=== PATIENT | female | born 1980 | race Caucasian/White ===

== ENCOUNTER 2016-11-08 09:50 | Day surgery (SDC) | payer OTHER ==
[~2016-11-08] VITALS: Ht 165.1 cm; Wt 97.9 kg
[~2016-11-08 09:50] MED LIST: AMOXICILLIN500 M1 PO; AUGMENTIN XR1000 MG PO; AUGMENTIN500 MG PO; AZITHROMYCIN500 M1 PO; COUGH & COLD S237 ML PO; LO-DOSE ASPIRIN81 M1 PO; MYCOSTATIN 100,60 ML PO; ONE DAILY WOME1 EACH PO; PHENAZOPYRIDIN100 MG PO; RABAVERT IM; TESSALON PERLE100 MG PO; VANCOMYCIN HCL125 MG PO; VITAMIN D31000 UNI1 PO; ZOVIRAX5 GM TP; [UNRECOGNIZED DRUG - OTHER] IM; [UNRECOGNIZED DRUG - OTHER] PO
[2016-11-08 10:16] VITALS: BP 134/81
[2016-11-08] MEDS ORDERED: IBUPROFEN800 MG PO (12:34)
[2016-11-08 14:20] VITALS: BP 134/72
[2016-11-08 15:33] VITALS: BP 130/85
== END 2016-11-08 15:35 | disposition home or self-care (01) ==
LOC: SDC 09:50
DX: N92.0 Excessive and frequent menstruation with regular cycle (principal); N84.0 Polyp of corpus uteri; N94.6 Dysmenorrhea, unspecified; N85.4 Malposition of uterus; R39.15 Urgency of urination; E66.01 Morbid (severe) obesity due to excess calories; Z68.41 Body mass index [BMI] 40.0-44.9, adult; Z80.49 Family history of malignant neoplasm of other genital organs; Z82.0 Family history of epilepsy and other diseases of the nervous system; Z80.0 Family history of malignant neoplasm of digestive organs; Z83.3 Family history of diabetes mellitus; Z80.3 Family history of malignant neoplasm of breast; Z80.42 Family history of malignant neoplasm of prostate; Z82.61 Family history of arthritis; Z82.5 Family history of asthma and other chronic lower respiratory diseases
CPT/HCPCS: 88305; J1100; J1170; J1885; J2250; J2405; J3010

== ENCOUNTER 2017-12-04 05:32 | Day surgery (SDC) | payer OTHER ==
[~2017-12-04] VITALS: Ht 165.1 cm; Wt 111.1 kg
[~2017-12-04 05:32] MED LIST changes: +BENTYL10 MG PO; +CLEOCIN300 MG PO; +DEPO-PROVER150 MG/ML IM; +DOK100 M1 PO; +ENDOCET 5-3251 EACH PO; +IBUPROFEN800 MG PO; +PRILOSEC20 MG PO; +ROBAXIN500 MG PO; +VALTREX50 MG/ML PO; +XANAX0.5 MG PO
[2017-12-04 05:59] VITALS: BP 130/74
[2017-12-04] MEDS ORDERED: NORCO 5/3251 TABLET PO (09:51)
[2017-12-04 10:15] VITALS: BP 139/85
[2017-12-04 11:07] VITALS: BP 132/76
== END 2017-12-04 11:15 | disposition home or self-care (01) ==
LOC: SDC 05:32
PROVIDERS: Surgery
PROC: 0JB70ZZ Excision of Back Subcutaneous Tissue and Fascia, Open Approach (ICD-10-PCS; principal; 2017-12-04)
DX: D17.1 Benign lipomatous neoplasm of skin and subcutaneous tissue of trunk (principal); E66.01 Morbid (severe) obesity due to excess calories; Z68.41 Body mass index [BMI] 40.0-44.9, adult; I87.2 Venous insufficiency (chronic) (peripheral); E55.9 Vitamin D deficiency, unspecified; Z98.84 Bariatric surgery status; Z82.0 Family history of epilepsy and other diseases of the nervous system; Z80.0 Family history of malignant neoplasm of digestive organs; Z83.3 Family history of diabetes mellitus; Z80.3 Family history of malignant neoplasm of breast; Z82.49 Family history of ischemic heart disease and other diseases of the circulatory system; Z82.61 Family history of arthritis; Z82.5 Family history of asthma and other chronic lower respiratory diseases; Z88.8 Allergy status to other drugs, medicaments and biological substances; Z91.040 Latex allergy status; Z90.49 Acquired absence of other specified parts of digestive tract
CPT/HCPCS: 81025; 88304; J0690; J1100; J2250; J2405; J3010